=== PATIENT | male | born 1985 | race Caucasian/White ===

== ENCOUNTER 2016-09-14 11:15 | Emergency (ER) | payer OTHER ==
[2016-09-14 11:53] LABS: PH,URINE 6.5 (5.0 - 9.0); URINE BILIRUBIN NEGATIVE (NEGATIVE); URINE BLOOD NEGATIVE (NEGATIVE); URINE GLUCOSE (UA) NORMAL (NORMAL); URINE KETONE NEGATIVE (NEGATIVE); URINE LEUKOCYTE ESTERASE NEGATIVE (NEGATIVE); URINE NITRATE NEGATIVE (NEGATIVE); URINE PROTEIN NEGATIVE (NEGATIVE); UROBILINOGEN NORMAL mg/dL (<1.0)
[2016-09-14 12:38] LABS: BASO % 0.3 % (0.2-1.2); EOS % 0.7 % (0.8-7.0); GRAN # 3.5 10_X3_uL (1.8-5.4); GRAN % 61.4 % (34.0-67.9); HEMATOCRIT 45.1 % (40-51); HEMOGLOBIN 16.4 g/dL (13.7-17.5); LYMPH # 1.7 10_X3_uL (1.3-3.6); MEAN CORPUSCULAR HEMOGLOBIN 33.8 pg (27.0-33.0); MEAN CORPUSCULAR HGB CONC 36.4 g/dL (32.0-36.0); MEAN PLATELET VOLUME 8.5 fl (7.5-11.5); MONO # 0.4 10_X3_uL (0.3-0.8); MONO % 7.6 % (5.3-12.2); PLATELET COUNT 303 x10_3/uL (163-337); RED BLOOD COUNT 4.85 x10_6/uL (4.6-6.1); RED CELL DISTRIBUTION WIDTH 12.3 % (11.6-14.4); WHITE BLOOD COUNT 5.8 x10_3/uL (4.2-9.1)
[2016-09-14 12:48] LABS: ALBUMIN 4.8 gm/dL (3.4-5.0); ALKALINE PHOSPHATASE 72 U/L (50-136); ALT/SGPT 133 U/L (7.53-40.17); AMYLASE 74 U/L (15.62-74.58); AST/SGOT 67 U/L (6.66-35.34); BILIRUBIN,TOTAL 0.39 mg/dL (0.0-1.0); BLOOD UREA NITROGEN 8 mg/dL (7-18); CALCIUM 9.6 mg/dL (8.7-10.7); CARBON DIOXIDE 23 mmol/L (21-32); CREATININE 0.7 mg/dL (0.6-1.3); GLUCOSE,RANDOM 105 mg/dL (70-99); LIPASE 32 U/L (6.75-60.75); POTASSIUM 4.3 mmol/L (3.5-5.1); SODIUM 140 mmol/L (136-145)
== END 2016-09-14 13:55 | disposition home or self-care (01) ==
LOC: ER 11:15
PROVIDERS: General Practice
DX: R10.31 Right lower quadrant pain (principal); F17.210 Nicotine dependence, cigarettes, uncomplicated; Z87.898 Personal history of other specified conditions
CPT/HCPCS: 36415; 80053; 81003; 82150; 83690; 85025; 99283